=== PATIENT | male | born 1970 ===

== ENCOUNTER 2018-07-04 19:23 | Observation (INO) | payer BC ==
[2018-07-04 19:44] VITALS: BMI 28.4
--- NOTE | 2018-07-04 20:05 | ED PDOC ---
Arrival/HPI - General Chief Complaint: Weakness/Neurological Deficit Time Seen by Provider: 07/04/18 19:42 Historian: Patient - History of Present Illness Narrative History of Present Illness (Text): 07/04/18 19:59 A 48 year old patient, whose past medical history includes type 2 diabetes, presents to the emergency department for a complaint of numbness and paresthesias to the right hand. Patient states earlier this morning, while at work, he experienced sharp pain to his right upper arm/ shoulder area. He subsequently developed numbness to his hand and paresthesias. He denies any arm/leg weakness, change in speech or headache, neck/ back pain, chest pain. Patient states that his blood sugar has been extremely elevated; close to 500. He is on oral hypoglycemic agent which include Januvia. Patient states he is compliant. Currently, his only symptoms are that of pins and needle sensation to his hand. No other complaint Time/Duration: Other (Today) Symptom Onset: Sudden Symptom Course: Unchanged Activities at Onset: Rest, Light Context: Work Past Medical History - Provider Review Nursing Documentation Reviewed: Yes - Past History Past History: No Previous - Infectious Disease Hx of Infectious Diseases: None - Tetanus Immunization Tetanus Immunization: Unknown - Cardiac Hx Cardiac Disorders: No - Pulmonary Hx Respiratory Disorders: Yes Hx Pneumonia: Yes - Neurological Hx Neurological Disorder: Yes Hx Migraine: Yes (Once in a blue) - HEENT Hx HEENT Disorder: No - Renal Hx Renal Disorder: No - Endocrine/Metabolic Hx Endocrine Disorders: No - Hematological/Oncological Hx Blood Disorders: No - Integumentary Hx Dermatological Disorder: No - Musculoskeletal/Rheumatological Hx Musculoskeletal Disorders: No - Gastrointestinal Hx Gastrointestinal Disorders: No - Genitourinary/Gynecological Hx Genitourinary Disorders: No - Psychiatric Hx Psychophysiologic Disorder: No Hx Substance Use: No - Anesthesia Hx Anesthesia: No Family/Social History - Physician Review Nursing Documentation Reviewed: Yes Family/Social History: No Known Family HX Smoking Status: Former Smoker Hx Alcohol Use: No Hx Substance Use: No Allergies/Home Meds Allergies/Adverse Reactions: Allergies penicillin G Adverse Reaction (Verified 07/04/18 19:43) URTICARIA Home Medications: Home Meds Medication Instructions Recorded Confirmed No Known Home Med 01/24/16 01/24/16 Review of Systems - Physician Review All systems were reviewed & negative as marked: Yes - Review of Systems Constitutional: absent: Fevers Cardiovascular: absent: Chest Pain Musculoskeletal: Other (numbness and paresthesias to right arm). absent: Back Pain, Neck Pain Physical Exam Vital Signs Reviewed: Yes Vital Signs Temp Pulse Resp BP Pulse Ox 07/04/18 19:56 98.6 F 73 15 130/86 95 Temperature: Afebrile Blood Pressure: Normal Pulse: Regular Respiratory Rate: Normal Appearance: Positive for: Well-Appearing, Non-Toxic, Comfortable Pain Distress: None Mental Status: Positive for: Alert and Oriented X 3 - Systems Exam Head: Present: Atraumatic, Normocephalic Pupils: Present: PERRL Extroacular Muscles: Present: EOMI Conjunctiva: Present: Normal Mouth: Present: Moist Mucous Membranes Neck: Present: Normal Range of Motion Respiratory/Chest: Present: Clear to Auscultation, Good Air Exchange. No: Respiratory Distress, Accessory Muscle Use Cardiovascular: Present: Regular Rate and Rhythm, Normal S1, S2. No: Murmurs Abdomen: No: Tenderness, Distention, Peritoneal Signs Back: Present: Normal Inspection Upper Extremity: Present: Normal Inspection. No: Cyanosis, Edema Lower Extremity: Present: Normal Inspection. No: Edema Neurological: Present: GCS=15, CN II-XII Intact, Speech Normal, Motor Func Grossly Intact, Normal Sensory Function Skin: Present: Warm, Dry, Normal Color. No: Rashes Psychiatric: Present: Alert, Oriented x 3, Normal Insight, Normal Concentration Medical Decision Making ED Course and Treatment: 07/04/18 20:06 Impression: A 48 year old male presents to the emergency department for a complaint of numbness and paresthesias to the right arm. Differential Diagnosis included but are not limited to: CAD, diabetic peripheral neuropathy, cerebral hemorrhage, bursitis Plan: -- Head CT -- EKG -- Chest X-ray -- Labs -- Reassess and disposition Prior Visits: Notes and results from previous visits were reviewed. Progress Notes: 07/04/18 21:50 EKG shows NSR at 74 BPM with LAD no acute changes. Interpreted by me. 07/04/18 21:50 CXR Impression: As read by me, no acute process. EXAM: Head CT Electronically signed on Jul 04, 2018 9:04:31 PM EST by: Lan Gibbs M.D IMPRESSION: Sinusitis as above. No evidence of acute intracranial pathology. 07/04/18 22:[address] Coates who is aware and agrees with the plan. Requests resident to be notified. - Lab Interpretations Lab Results: Lab Results 07/04/18 19:30: POC Glucose (mg/dL) 293 H I have reviewed the lab results: Yes - RAD Interpretation Radiology Orders: 07/04/18 19:49 HEAD W/O CONTRAST [CT] Stat 07/04/18 19:50 CHEST PORTABLE [RAD] Stat - EKG Interpretation Interpreted by ED Physician: Yes Type: 12 lead EKG NIHSS Scale ([place]) Time Performed: 19:40 - How Severe is the Stoke Baseline Level of Consciousness: 0=Alert LOC to Questions: 0=Both comments correct LOC to commands: 0=Obeys both correctly Best Gaze: 0=Normal Visual: 0=No visual loss Facial: 0=Normal Motor Arm - Left: 0=No drift Motor Arm - Right: 0=No drift Motor Leg - Left: 0=No drift Motor Leg - Right: 0=No drift Limb Ataxia: 0=Absent Sensory: 0=Normal Best Language: 0=No aphasia Dysarthia: 0=Normal articulation Extinction & Inattention (Neglect): 0=Normal, no object Score: 0 Risk Level: No Stroke Risk - Scribe Statement The provider has reviewed the documentation as recorded by the Scribe Provider Attestation: Virgen Blake Provider Scribe Attestation: All medical record entries made by the Scribe were at my direction and personally dictated by me. I have reviewed the chart and agree that the record accurately reflects my personal performance of the history, physical exam, medical decision making, and the department course for this patient. I have also personally directed, reviewed, and agree with the discharge instructions and disposition. Disposition/Present on Arrival - Present on Arrival Any Indicators Present on Arrival: No History of DVT/PE: No History of Uncontrolled Diabetes: No Urinary Catheter: No History of Decub. Ulcer: No History Surgical Site Infection Following: None - Disposition Have Diagnosis and Disposition been Completed?: Yes Diagnosis: Uncontrolled diabetes mellitus, Neuropathy Disposition: HOSPITALIZED Disposition Time: 22:15 Patient Plan: Observation Condition: STABLE Forms: [employer] (Yoruba)
[2018-07-04 20:24] LABS: HEMOGLOBIN 14.6 g/dL (14.0-18.0); MEAN CELL VOLUME 81.9 fl (80.0-105.0); MEAN CORPUSCULAR HEMOGLOBIN 28.4 pg (25.0-35.0); MEAN CORPUSCULAR HGB CONC 34.7 g/dl (31.0-37.0); MEAN PLATELET VOLUME 9.8 fl (7.0-11.0); RBC 5.14 10^6/uL (3.5-6.1); RED CELL DISTRIBUTION WIDTH 12.7 % (11.5-14.5); WHITE BLOOD COUNT 4.3 10^3/uL (4.5-11.0)
[2018-07-04 20:28] LABS: INR 0.98; PARTIAL THROMBOPLASTIN TIME 28.2 Seconds (25.1-36.5); PROTHROMBIN TIME 11.2 SECONDS (9.4-12.5)
[2018-07-04 20:40] LABS: TROPONIN I < 0.01 ng/mL
[2018-07-04 20:42] LABS: ALB/GLOB RATIO 1.4 (1.1-1.8); ALBUMIN 4.4 g/dL (3.0-4.8); ALT/SGPT 46 U/L (7-56); AST/SGOT 25 U/L (17-59); BLOOD UREA NITROGEN 21 mg/dL (7-21); CALCIUM 9.6 mg/dL (8.4-10.5); GFR NON-AFRICAN AMERICAN > 60
[2018-07-05] MEDS: Sodium Chloride 0.9% 1,000 ML IV SCH ×2 (02:30→12:28)
--- NOTE | 2018-07-05 03:57 | CP.PCM.HP ---
History of Present Illness - History of Present Illness History of Present Illness: Ratna Hogan, PGY-1 H&P Medicine Note for Dr. Coates: CC: R arm numbness Pt is a 48 yo M with pmhx of DM2, HLD who presents to the ED for R arm numbness which started this afternoon. Pt states that at 4-5 pm he woke up and noticed that he was having some R arm numbness and tingling. He states that he has never had these symptoms before and that they were associated with pins and needle sensations. Pt admits to being a poorly controlled diabetic and states that he has had similar problems like this in his legs previously but never in the arms. He denies any weakness in the R arm and also denies any other areas of numbness or tingling. Pt admits to improving numbness, tingling and pins and needles sensation. At this time the pt denies fevers, chills, headache, lightheadedness, dizziness, weakness, chest pain, palpitations, SOB, cough, wheezing, abd pain, n/v, c/d, or dysuria. Pmhx: DM2, HLD Pshx: 2 benign tumors removed from neck, december 2017 Meds: Metformin, lipitor, januvia All: PCN - Rash Social: denies any tobacco use, any etoh or illicit drug use Fam Hx: Mom: DM Present on Admission - Present on Admission Any Indicators Present on Admission: No Review of Systems - Review of Systems Review of Systems: 12 point ROS is reviewed and negative except for noted in HPI above. Past Patient History - Infectious Disease Hx of Infectious Diseases: None - Tetanus Immunizations Tetanus Immunization: Unknown - Past Social History Smoking Status: Never Smoked - CARDIAC Hx Cardiac Disorders: No - PULMONARY Hx Respiratory Disorders: Yes Hx Pneumonia: Yes - NEUROLOGICAL Hx Neurological Disorder: No - HEENT Hx HEENT Problems: No - RENAL Hx Chronic Kidney Disease: No - ENDOCRINE/METABOLIC Hx Endocrine Disorders: Yes Hx Diabetes Mellitus Type 2: Yes - HEMATOLOGICAL/ONCOLOGICAL Hx Blood Disorders: No - INTEGUMENTARY Hx Dermatological Problems: No - MUSCULOSKELETAL/RHEUMATOLOGICAL Hx Musculoskeletal Disorders: No Hx Falls: No - GASTROINTESTINAL Hx Gastrointestinal Disorders: No - GENITOURINARY/GYNECOLOGICAL Hx Genitourinary Disorders: No - PSYCHIATRIC Hx Psychophysiologic Disorder: No - SURGICAL HISTORY Hx Surgeries: Yes ( small lump removed under chin) - ANESTHESIA Hx Anesthesia: No Meds Allergies/Adverse Reactions: Allergies Allergy/AdvReac Type Severity Reaction Status Date / Time penicillin G AdvReac URTICARIA Verified 07/04/18 19:43 Physical Exam - Constitutional Appears: Well, Non-toxic, No Acute Distress - Head Exam Head Exam: ATRAUMATIC, NORMAL INSPECTION, NORMOCEPHALIC - Eye Exam Eye Exam: EOMI, Normal appearance, PERRL - Neck Exam Neck exam: Positive for: Normal Inspection. Negative for: Lymphadenopathy, Meningismus, Tenderness - Respiratory Exam Respiratory Exam: Clear to Auscultation Bilateral, NORMAL BREATHING PATTERN. absent: Accessory Muscle Use, Decreased Breath Sounds, Rales, Rhonchi, Wheezes, Respiratory Distress, Stridor - Cardiovascular Exam Cardiovascular Exam: RRR, +S1, +S2. absent: Gallop, Rubs - Extremities Exam Extremities exam: Positive for: normal capillary refill, normal inspection, pedal pulses present. Negative for: pedal edema, tenderness - Back Exam Back exam: NORMAL INSPECTION. absent: CVA tenderness (L), CVA tenderness (R) - Neurological Exam Neurological exam: Alert, CN II-XII Intact, Oriented x3 - Psychiatric Exam Psychiatric exam: Normal Affect, Normal Mood - Skin Skin Exam: Dry, Intact, Normal Color, Warm Results - Vital Signs Recent Vital Signs: Last Vital Signs Temp 98.1 F 07/04/18 23:45 Pulse 88 07/04/18 23:45 Resp 18 07/05/18 00:08 BP 116/77 07/04/18 23:45 Pulse Ox 98 07/04/18 23:45 - Labs Result Diagrams: 07/04/18 20:10 07/04/18 20:10 Labs: Laboratory Results - last 24 hr 07/04/18 07/04/18 07/04/18 19:30 20:10 20:10 WBC RBC Hgb Hct MCV MCH MCHC RDW Plt Count MPV PT 11.2 INR 0.98 APTT 28.2 Sodium 138 Potassium 4.1 Chloride 105 Carbon Dioxide 25 Anion Gap 13 BUN 21 Creatinine 0.9 Est GFR ( Amer) > 60 Est GFR (Non-Af Amer) > 60 POC Glucose (mg/dL) 293 H Random Glucose 324 H* Calcium 9.6 Total Bilirubin 0.6 AST 25 ALT 46 Alkaline Phosphatase 124 Lactate Dehydrogenase 447 Total Creatine Kinase 149 Troponin I < 0.01 Total Protein 7.4 Albumin 4.4 Globulin 3.0 Albumin/Globulin Ratio 1.4 07/04/18 07/05/18 20:10 02:40 WBC 4.3 L RBC 5.14 Hgb 14.6 Hct 42.1 MCV 81.9 MCH 28.4 MCHC 34.7 RDW 12.7 Plt Count 203 MPV 9.8 PT INR APTT Sodium Potassium Chloride Carbon Dioxide Anion Gap BUN Creatinine Est GFR ( Amer) Est GFR (Non-Af Amer) POC Glucose (mg/dL) Random Glucose Calcium Total Bilirubin AST ALT Alkaline Phosphatase Lactate Dehydrogenase Total Creatine Kinase Troponin I < 0.01 Total Protein Albumin Globulin Albumin/Globulin Ratio Assessment & Plan - Assessment and Plan (Free Text) Assessment: Pt is a 48 yo M with pmhx of DM2, HLD who presents to the ED for R arm numbness which started this afternoon. Head CT done in ED was negative and showed no acute intracranial path. Pt is noted to have elevated BS in the 300s without a gap. Pt states that his symptoms are improving. Plan: 1. R arm parasthesia likely 2/2 poor BS control vs TIA vs stroke: - CT head was negative for acute intracranial path - MRI Brain, MRA Brain - MRI C spine - Neuro consult - Vaughn - Lipitor - ASA - lipid panel - f/u repeat trop and ekg 2. Hx of DM: - ISS - HbgA1c, glycomark 3. Hx of HLD: - Lipitor 40 qd 4. PPx: - GI: Protonix - DVT: Lovenox Case seen and discussed with Dr. Aminata Hogan, PGY-1
[2018-07-05] MEDS ORDERED: Dextrose 50% SYRINGE Inj (50 ml) IV PRN (04:08)
[2018-07-05] MEDS ORDERED: Pantoprazole 40 mg EC Tab PO SCH (06:00)
[2018-07-05 07:01] VITALS: RESP 20; O2SAT 100
[2018-07-05 08:45] LABS: BASO # 0.03 K/mm3 (0.0-2.0); BASO % 0.7 % (0.0-3.0); EOS # 0.2 (0.0-0.7); EOS % 3.5 % (1.5-5.0); GRAN # 1.85 (1.4-6.5); GRAN % 40.8 % (50.0-68.0); HEMOGLOBIN 13.9 g/dL (14.0-18.0); LYMPH # 2.2 (1.2-3.4); MEAN CELL VOLUME 82.8 fl (80.0-105.0); MEAN CORPUSCULAR HEMOGLOBIN 27.9 pg (25.0-35.0); MEAN CORPUSCULAR HGB CONC 33.7 g/dl (31.0-37.0); MEAN PLATELET VOLUME 9.8 fl (7.0-11.0); MONO # 0.3 (0.1-0.6); RBC 4.99 10^6/uL (3.5-6.1); RED CELL DISTRIBUTION WIDTH 12.8 % (11.5-14.5); WHITE BLOOD COUNT 4.5 10^3/uL (4.5-11.0)
[2018-07-05 08:55] LABS: ALB/GLOB RATIO 1.4 (1.1-1.8); ALBUMIN 3.8 g/dL (3.0-4.8); ALT/SGPT 45 U/L (7-56); AST/SGOT 22 U/L (17-59); BLOOD UREA NITROGEN 21 mg/dL (7-21); CALCIUM 8.8 mg/dL (8.4-10.5); GFR NON-AFRICAN AMERICAN > 60
[2018-07-05 09:06] LABS: TROPONIN I < 0.01 ng/mL
--- NOTE | 2018-07-05 09:29 | RAD ---
Date of service: 07/04/2018 HISTORY: medical clearance COMPARISON: No prior. FINDINGS: LUNGS: No active pulmonary disease. PLEURA: No significant pleural effusion identified, no pneumothorax apparent. CARDIOVASCULAR: No aortic atherosclerotic calcification present. Normal cardiac size. No pulmonary vascular congestion. OSSEOUS STRUCTURES: No significant abnormalities. VISUALIZED UPPER ABDOMEN: Normal. OTHER FINDINGS: None. IMPRESSION: No active disease.
[2018-07-05 09:38] LABS: HDL CHOLESTEROL 35 mg/dL (29-60)
[2018-07-05 09:49] LABS: LDL CHOLESTEROL 99 mg/dL (0-129)
[2018-07-05 09:57] LABS: FREE T4 0.89 ng/dL (0.78-2.19); T4 5.5 ug/dL (5.5-11.0)
[2018-07-05] MEDS ORDERED: Enoxaparin 40 mg Syringe SC SCH (10:00)
--- NOTE | 2018-07-05 10:13 | CT ---
Date of service: 07/04/2018 PROCEDURE: CT HEAD WITHOUT CONTRAST. HISTORY: mediacal clearance COMPARISON: None available. TECHNIQUE: Axial computed tomography images were obtained through the head/brain without intravenous contrast. Radiation dose: Total exam DLP = 1314.77 mGy-cm. This CT exam was performed using one or more of the following dose reduction techniques: Automated exposure control, adjustment of the mA and/or kV according to patient size, and/or use of iterative reconstruction technique. FINDINGS: HEMORRHAGE: No intracranial hemorrhage. BRAIN: No mass effect or edema. No atrophy or chronic microvascular ischemic changes. VENTRICLES: Unremarkable. No hydrocephalus. CALVARIUM: Unremarkable. PARANASAL SINUSES: Right maxillary sinus retention cyst/polyps. MASTOID AIR CELLS: Unremarkable as visualized. No inflammatory changes. OTHER FINDINGS: None. IMPRESSION: No acute hemorrhage.
--- NOTE | 2018-07-05 11:22 | MRI ---
Date of service: 07/05/2018 PROCEDURE: MRI BRAIN WITHOUT CONTRAST HISTORY: r/o stroke COMPARISON: None available. TECHNIQUE: Multiplanar, multisequence MR images of the brain were obtained without intravenous contrast enhancement. FINDINGS: HEMORRHAGE: None DWI: No evidence of an acute or early subacute infarction. BRAIN PARENCHYMA: No mass effect or edema. No atrophy or chronic microvascular ischemic changes. VENTRICLES: Unremarkable. No hydrocephalus. CRANIUM: Unremarkable. ORBITS: Grossly unremarkable. PARANASAL SINUSES/MASTOIDS: Mucous retention cysts are seen in the maxillary sinuses VASCULAR SYSTEM: Skull base flow voids intact. OTHER FINDINGS: None. IMPRESSION: Unremarkable non contrast enhanced MRI of the brain.
--- NOTE | 2018-07-05 11:24 | MRI ---
Date of service: 07/05/2018 PROCEDURE: Magnetic Resonance Angiography Brain HISTORY: r/o stroke COMPARISON: None available. TECHNIQUE: 3D time of flight MR angiography of the intracranial arteries was performed. Rotating maximum intensity projection images were generated. FINDINGS: INTERNAL CAROTID ARTERIES: Unremarkable. The skull base, petrous, cavernous and supraclinoid segments are bilaterally widely patient. ANTERIOR CEREBRAL ARTERIES: Unremarkable. A1 and A2 segments are widely patent. Smaller distal branches unremarkable, as visualized. MIDDLE CEREBRAL ARTERIES: Unremarkable. M1 and M2 segments are widely patent. Perisylvian branches grossly symmetric. POSTERIOR CIRCULATION: Basilar Artery: Unremarkable. Distal Vertebral Arteries: Unremarkable. Posterior Cerebral Arteries: Unremarkable. Posterior Inferior Cerebellar Arteries: Unremarkable. ANEURYSM/ VASCULAR MALFORMATIONS: None. OTHER FINDINGS: None. IMPRESSION: Unremarkable MR angiography of the brain.
--- NOTE | 2018-07-05 11:33 | MRI ---
Date of service: 07/05/2018 PROCEDURE: MR CERVICAL SPINE WITHOUT CONTRAST HISTORY: r/o stroke COMPARISON: None available. TECHNIQUE: Multiecho multiplanar sequences were performed through the cervical spine without the use of intravenous contrast. FINDINGS: Normal lordotic curvature. Craniocervical junction unremarkable. Vertebral body heights preserved. No marrow signal abnormality. Normal cervical cord. No paraspinal abnormality. C2-C3: No disc herniation, spinal canal stenosis or neural foraminal narrowing. C3-C4: No disc herniation, spinal canal stenosis or neural foraminal narrowing. C4-C5: No disc herniation, spinal canal stenosis or neural foraminal narrowing. C5-C6: Disc degeneration with mild left-sided foraminal stenosis. No central stenosis C6-C7: No disc herniation, spinal canal stenosis or neural foraminal narrowing. C7-T1: No disc herniation, spinal canal stenosis or neural foraminal narrowing. OTHER FINDINGS: There is desiccation of the disc material at multiple levels. IMPRESSION: No evidence of focal disc herniation or spinal stenosis. Mild disc degeneration with mild foraminal stenosis on the left at C5-6
[2018-07-05] MEDS: Insulin Lispro (humaLOG) MEDIUM Coverage SC SCH ×2 (12:26→12:28)
[2018-07-05 14:01] VITALS: BP 121/92; PULSE 70; TEMP 97.4
--- NOTE | 2018-07-05 15:34 | CARD ---
APPROVED REPORT Date of service: 07/05/2018 EXAM: Two-dimensional and M-mode echocardiogram with Doppler and color Doppler. INDICATION Hypertension/HCVD 2D DIMENSIONS Left Atrium (2D)4.0 (1.6-4.0cm)IVSd1.1 (0.7-1.1cm) LVDd5.2 (3.9-5.9cm)PWd1.0 (0.7-1.1cm) LVDs3.7 (2.5-4.0cm)FS (%) 28.3 % LVEF (%)54.5 (>50%) M-Mode DIMENSIONS Aortic Root2.80 (2.2-3.7cm)Aortic Cusp Exc.1.90 (1.5-2.0cm) Aortic Valve AoV Peak Omdwdhep996.0cm/Sasha Peak GR.6mmHg Mitral Valve MV E Usgwpdhn17.8cm/sMV A Sxdstuqk23.8cm/sE/A ratio1.3 TDI E/Lateral E'0.0E/Medial E'0.0 Tricuspid Valve TR Peak Pjtattwv686xg/sRAP [id number] Peak Gr.14mmHg [id number] LEFT VENTRICLE The left ventricle is normal size. There is normal left ventricular wall thickness. The left ventricular function is normal. The left ventricular ejection fraction is within the normal range. There is normal LV segmental wall motion. The left ventricular diastolic function is normal. RIGHT VENTRICLE The right ventricle is normal size. There is normal right ventricular wall thickness. The right ventricular systolic function is normal. ATRIA The left atrium is borderline dilated. The right atrium size is normal. AORTIC VALVE The aortic valve is mildly thickened. No aortic regurgitation is present. There is no aortic valvular stenosis. MITRAL VALVE The mitral valve is normal in structure. There is no mitral valve regurgitation noted. There is no mitral valve stenosis. TRICUSPID VALVE The tricuspid valve is normal in structure. There is no tricuspid valve regurgitation noted. GREAT VESSELS The aortic root is normal in size. The IVC is normal in size and collapses >50% with inspiration. PERICARDIAL EFFUSION There is no pericardial effusion. <Conclusion> The left ventricle is normal size. There is normal left ventricular wall thickness. The left ventricular function is normal. The left ventricular ejection fraction is within the normal range. There is normal LV segmental wall motion. The left ventricular diastolic function is normal.
--- NOTE | 2018-07-05 18:02 | CON ---
DATE: 07/05/2018 CHIEF COMPLAINT: Right arm numbness. HISTORY OF PRESENT ILLNESS: This is a 48-year-old man with a past medical history of type 2 diabetes mellitus and dyslipidemia who presents to the hospital with right arm numbness started prior to arrival. He states at 4 to 5 p.m. on 07/04/2018, he has had right arm numbness and tingling. Never had these symptoms before. He has been a poorly controlled diabetic. He came with a blood sugar of 352 and his A1c is elevated at 9.5 and became poorly controlled diabetes. His MRI of the brain and MRA of the head showed no intracranial abnormalities. No focal weakness of the extremities. He does have some mild peripheral neuropathy based on neuro exam, otherwise overall doing well. No focal weakness seen on neuro exam. He is feeling much better. He has MRI of the cervical spine mostly at C5-C6 on the left, but nothing on the right. His sugars are being under control, so elevated today of 272. PAST MEDICAL HISTORY: As above. SOCIAL HISTORY: No illicit drug use, smoking or EtOH abuse. FAMILY HISTORY: Mom has history of diabetes. MEDICATIONS: Reviewed by nurse's reconciliation sheet. LABORATORY DATA: Sodium is 138, potassium is 3.0, chloride 106, carbon dioxide 27, BUN 21, creatinine 0.1, random glucose 272. PHYSICAL EXAMINATION: GENERAL: The patient is seen on bed, in no acute distress. VITAL SIGNS: Temperature 97.4, pulse rate of 65, and blood pressure 195/60, respiratory rate of 20, oxygen saturation 100% of room air. HEENT: Head is atraumatic, normocephalic. PERRLA. Extraocular muscles intact. NECK: Supple. No JVD. No adenopathy noted. LUNGS: Clear to auscultation. No adventitious sounds. HEART: S1 and S2. Normal rate and rhythm. No murmurs, rubs, or gallops. ABDOMEN: Soft, nontender, nondistended. Bowel sounds present. EXTREMITIES: No clubbing. No cyanosis. Peripheral pulses are 2+ felt bilaterally. NEUROLOGICAL: The patient is alert, oriented to person, place, month, and year. Speech is fluent without any errors. Cranial nerves II through XII are intact. Motor exam: Moves all extremities equally. Toes downgoing bilaterally. Sensory: Light touch, pinprick, Decreased vibration of the toes. Deep tendon reflexes are 2+ throughout at toes and ankles. Coordination: [id number] intact. No dysmetria noted. IMPRESSION AND PLAN: Tingling and numbness of the right arm and actually occasionally extremities with paresthesias, likely secondary to hyperglycemia for uncontrolled diabetes, given his A1c at 9.5. Exam of the brain MRI and the MRA of the head was unremarkable. It failed to showed any acute intracranial abnormalities. His neuro exam is nonfocal. At this time, I would recommend: 1. Aspirin 81 mg p.o. daily. 2. Depakote 40 mg p.o. daily for dyslipidemia. 3. Keep blood sugars at 140, 180, and get better diabetic control as an outpatient and continue to follow . Thank you for this consult. Jono Mendes MD
--- NOTE | 2018-07-05 18:22 | CARD ---
APPROVED REPORT Date of service: 07/04/2018 EKG Measurement Heart [id number] <Conclusion> Normal sinus rhythm Left axis deviation Abnormal ECG
--- NOTE | 2018-07-05 21:34 | HP ---
DATE OF EXAM: 07/05/2018 HISTORY OF PRESENT ILLNESS: The patient is a 48-year-old male who presented to the emergency room complaining of right-sided numbness of the right arm with severe pain of right upper extremity pain. The patient also stated this his blood sugar has been elevated and apparently according to the ER physician evaluation, the patient stopped taking his oral hypoglycemic. The patient does have a history of diabetes diagnosed a few months ago and has not been compliant with medication. The patient was prescribed metformin and Januvia which he stopped. CODE STATUS: Full code. LIVING WILL ADVANCE DIRECTIVE: None. ALLERGIES: PENICILLIN. Height is 5 feet 11 inches. BMI is 29.6. HOME MEDICATIONS: Metformin 1000 mg twice a day, Januvia 100 mg daily, Lipitor daily. 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 Past medical history is significant for former smoker. FAMILY HISTORY: Positive for diabetes, coronary artery disease, hypertension, etc, occupational history. The patient is employed by a [employer] company in [facility]. SOCIAL HISTORY: Denies substance abuse. Denies alcohol. Denies smoking. REVIEW OF SYSTEMS: 14-system review was done, pertinent positive negative dictated above. PHYSICAL EXAMINATION: GENERAL: The patient is seen lying in the stretcher. VITAL SIGNS: T-max 98.6, heart rate 73, blood pressure 130/86, respiration 15, O2 sat is 95%. HEENT: Head is normocephalic, atraumatic. HEENT examination shows pink conjunctivae. Anicteric sclerae, dry oral mucosa. NECK: No neck rigidity. CHEST: Kyphosis. CARDIOPULMONARY: Shows S1, S2, regular rhythm. No audible murmur, gallop or rub. LUNGS: Shows no audible crackle, rales or wheezing. ABDOMEN: Soft. Positive bowel sound. No palpable hepatosplenomegaly. GENITALIA: Male. RECTAL: Deferred. EXTREMITIES: Shows no pitting edema. No calf tenderness. No Homans' sign. NEUROLOGIC: The patient is alert, awake, oriented x3. Cranial nerves II-XII intact. Gait examination is independent. Motor strength is 5/5 in upper lower extremity. VASCULAR: Palpable pulses. Plantar downward. DTRs at 2+. MUSCULOSKELETAL: Shows a body mass index of 29.6. DIAGNOSTICS: WBC 4.3, hemoglobin and hematocrit 14.6, 42.1, platelet 203. PT/PTT 11.2 and 28.6. Sodium 138, potassium 4.1, chloride 105, CO2 25, anion gap 13, BUN 21, creatinine 0.9, GFR greater than 60, glucose 324, hemoglobin A1c 9.5, calcium 9.6. LFTs are within normal limit. Troponin negative. The patient had a CT of the head and a chest x-ray done in the emergency room. CT of the head was done which shows right maxillary sinus retention cyst and polyp. Chest x-ray was done in the emergency room which was negative. The patient had an EKG done in the emergency room which shows sinus rhythm. Questionable left axis deviation. There is no previous EKG available in the in the system to comparison. The patient was seen and evaluated in the emergency room by the ER physician. The patient was advised to be admitted for observation and for evaluation of the right-sided numbness and further diagnostic therapeutic intervention. IMPRESSION: 1. Right upper extremity numbness versus right upper extremity neuropathy versus diabetic neuropathy. 2. Uncontrolled non-insulin requiring diabetes mellitus with hyperglycemia and elevated hemoglobin A1c of 9.5. 3. Leukopenia. 4. Hyperglycemia. 5. History of type 2 diabetes mellitus, history of hyperlipidemia. 6. Right maxillary sinus retention cyst or polyp. 7. Questionable right cervical radiculopathy. 8. History of right neck schwannoma and surgery. 9. Right upper extremity paresthesia, numbness secondary to uncontrolled diabetes mellitus and hyperglycemia. PLAN: At this time, the patient will be admitted to telemetry. The patient has been ordered hemoglobin A1c, lipid panel. Neurology consultation has been ordered. Repeat lab work ordered. Neurology consultation ordered. The patient is started on sliding scale coverage, aspirin 81 daily, Lipitor 40 mg daily Lovenox 40 subcutaneously daily, Protonix 40 mg daily, IV fluid 0.9 normal saline at 100 mL an hour. Repeat EKG ordered. The patient is placed on heart healthy diabetic diet. At present, the patient's further management the patient has been ordered an MRA of the brain, MRI of the cervical spine. Echocardiogram ordered. Repeat EKG ordered. At present, the patient will be admitted to telemetry for further diagnostic therapeutic intervention. The patient's further management will be dependent upon the patient's clinical condition, hemodynamic status and as per the patient response to therapeutic intervention, as per the patient's diagnostic test results and as per recommendation by all the physician involved in the care of the patient. Dictated and electronically signed, not read. Srini Coates MD
--- NOTE | 2018-07-05 22:13 | CARD ---
APPROVED REPORT Date of service: 07/05/2018 EKG Measurement Heart [id number] <Conclusion> Normal sinus rhythm Left axis deviation Abnormal ECG
[2018-07-06 10:56] LABS: 23 KD (IGG) BAND Nonreactive
--- NOTE | 2018-07-06 23:43 | DS ---
FINAL PROGRESS NOTE AND DISCHARGE SUMMARY SUBJECTIVE: The patient is seen in room 264, bed 2. The patient is sitting up in the bed, ambulating without any assistance. The patient states that the right upper extremity numbness and paresthesias are all resolved. OBJECTIVE: VITAL SIGNS: T-max 97.8, heart rate 70, 65, 68. Telemetry normal sinus rhythm, blood pressure 118/65, 95/60, 116/77, and 121/92, respirations 20, and O2 sat 98 to 100%. HEENT: Head examination; normocephalic and atraumatic. HEENT examination shows pink conjunctivae. Anicteric sclerae. No oropharyngeal lesion. NECK: No neck rigidity. CHEST: Kyphosis. LUNGS: Shows no audible crackle, rales, or wheezing. CARDIOVASCULAR: S1 and S2, regular rhythm. ABDOMEN: Soft. Positive bowel sounds. No palpable hepatosplenomegaly. GENITALIA: Male. RECTAL: Deferred. EXTREMITIES: Shows no pitting edema. No calf tenderness. No Homans' sign. NEUROLOGIC: The patient is alert, awake, and oriented x3. Cranial nerves II through XII intact. Gait examination is independent. VASCULAR: Palpable pulses. Plantars are downgoing. DTRs are 2+. MUSCULOSKELETAL: Shows a body mass index of 30. DIAGNOSTIC DATA: On 07/05/2018; WBC 4.5, hemoglobin and hematocrit 13.9 and 41.3, and platelet 193. ESR 3. Sodium 138, potassium 3.9, chloride 106, CO2 of 27, anion gap 9, BUN 21, creatinine 1, GFR greater than 60, glucose 272, hemoglobin A1c 9.5, and fructosamine 411. LFTs are normal. Magnesium, phosphorus, and calcium within normal limit. Troponin is negative. CRP is negative. Cholesterol is 194, LDL 99, and triglyceride 239. TSH and T4 normal. Lyme titers are negative. Echocardiogram, MRI of the brain, MRA of the brain, and MRI cervical spine, all reviewed. FINAL IMPRESSION, PLAN, AND DISCHARGE DIAGNOSES: 1. Right upper extremity paresthesias, numbness, tingling versus right upper extremity neuropathy etiology questionable, uncontrolled diabetes mellitus with hyperglycemia and possible diabetic and cervical radiculopathy. 2. Uncontrolled diabetes mellitus with hemoglobin A1c of 9.4. 3. Left ventricular ejection fraction of 54%. 4. Cervical spine degenerative disk disease with left-sided foraminal stenosis. 5. Cervical spine degenerative disk disease and foraminal stenosis at C5-C6. 6. Maxillary sinus mucous retention cyst. 7. Left axis deviation. 8. Transient leukopenia. 9. Hyperglycemia with uncontrolled diabetes mellitus with hemoglobin A1c of 9.5 and fructosamine of 411. 10. Hypertriglyceridemia, hypercholesteremia with elevated LDL and decreased HDL. Plan at this time, the patient was seen by Neurology. The patient was cleared for discharge by Neurology. The patient was discharged home on following medications; aspirin 81 mg daily, Lipitor 40 mg daily, the patient was advised to resume his metformin which he stopped taking 1000 mg twice a day and metformin 500 mg with lunch. The patient was given prescription for Lyrica 50 mg at bedtime. The patient was advised to resume Januvia 100 mg daily which he stopped. The patient was discharged home after cleared by Neurology. Discharge follow up with Dr. Coates within 1 week. Discharge medications as per updated ambulatory orders plus new script. The patient was advised and case was referred to nougat candy maker helper for diabetic education. Dictated and electronically signed, not read. Srini Coates MD
[2018-07-07 11:08] LABS: GLYCOMARK(R) 0.6 mcg/mL (7.3-36.6)
== END 2018-07-05 17:11 | disposition home or self-care (01) ==
LOC: ED 19:23 → ERH 22:15 → 3RNO 23:55 → 2RNO 07-05 01:45
PROVIDERS: ADMIT Internal Medicine; ATTEND Internal Medicine
DX: E11.65 Type 2 diabetes mellitus with hyperglycemia (principal); M50.30 Other cervical disc degeneration, unspecified cervical region; E78.00 Pure hypercholesterolemia, unspecified; E78.5 Hyperlipidemia, unspecified; E78.1 Pure hyperglyceridemia; J34.1 Cyst and mucocele of nose and nasal sinus; Z87.891 Personal history of nicotine dependence
CPT/HCPCS: 36415; 70450; 70544; 70551; 71045; 72141; 80053; 80061; 82550; 82948; 82985; 83036; 83615; 83735; 84100; 84378; 84439; 84443; 84484; 85025; 85027; 85610; 85651; 85730; 86141; 86617; 86618; 93005; 93306; 96372; 97161; 97530; 99285; G0378; G8978; G8979; G8980; J1650; J7030